=== PATIENT | female | born 1985 | race Caucasian/White ===

== ENCOUNTER 2024-03-23 13:01 | Emergency (ER) | payer MEDICAID ==
[~2024-03-23] VITALS: Ht 157.5 cm; Wt 63.0 kg
[2024-03-23 13:07] VITALS: TEMP 98.1; O2SAT 100
[2024-03-23] MEDS: SODIUM CHLORIDE 0.9% 1,000 ML IV ONE (13:44)
[2024-03-23] MEDS: KETOROLAC 30MG/ML VIAL IV ONE (13:45)
[2024-03-23 14:08] LABS: BASOPHILS % 0.2 % (0.0-2.0); EOSINOPHILS % 0.6 % (0.0-5.0); HEMOGLOBIN. 10.2 g/dL (12.0-16.0); LYMPHOCYTES % 14.4 % (20.0-50.0); MEAN CORPUSCULAR HEMOGLOBIN 30.4 pg (28.0-32.0); MEAN CORPUSCULAR HGB CONC 33.9 g/dL (31.0-37.0); MEAN CORPUSCULAR VOLUME 89.6 fL (81.0-99.0); MEAN PLATELET VOLUME 8.6 fl (7.4-10.4); MONOCYTES % 3.7 % (2.0-8.0); NEUTROPHILS % 81.1 % (40.0-76.0); PLATELET 148 x1000/uL (130-400); RED BLOOD CELL COUNT 3.35 mill/uL (4.2-5.4); RED CELL DISTRIBUTION WIDTH 13.4 % (11.6-14.6); WHITE BLOOD COUNT 10.2 x1000/uL (4.5-11.0)
[2024-03-23 14:16] LABS: CHLORIDE 107 mEq/L (98-107); POTASSIUM 3.4 mEq/L (3.5-5.1); SODIUM 138 mEq/L (136-145)
[2024-03-23 14:17] LABS: CALCIUM 8.4 mg/dL (8.7-10.4); CARBON DIOXIDE 24 mEq/L (21-32)
[2024-03-23 14:22] LABS: CREATININE 0.5 mg/dL (0.6-1.0); GLUCOSE 118 mg/dL (70-105); UREA NITROGEN BLOOD 9 mg/dL (9-23)
[2024-03-23 14:24] LABS: INR 1.1; PROTHROMBIN TIME 11.7 sec (9.6-11.0)
[2024-03-23 18:56] VITALS: BP 110/64; PULSE 65; RESP 18
== END 2024-03-23 19:01 | disposition home or self-care (01) ==
LOC: ER 13:18
DX: N93.9 Abnormal uterine and vaginal bleeding, unspecified (principal); R55 Syncope and collapse
CPT/HCPCS: 80048; 85025; 85610; 86850; 86900; 86901; 36415; 76856; 96361; 96374; 99285; J1885; J7030; Z7610